=== PATIENT | male | born 1990 | race Asian ===

== ENCOUNTER 2019-01-24 03:17 | Emergency (ER) | payer OTHER ==
[~2019-01-24] VITALS: Ht 167.6 cm; Wt 68.0 kg
--- NOTE | 2019-01-24 03:22 | Emergency Room Report ---
History of Present Illness General Chief Complaint: Alcohol Intoxication Source: Patient, EMS Present Illness HPI Is a 28-year-old male with no past medical history. He was brought in by EMS with chief plane of alcohol intoxication. Family called 911 because he is been drinking all night. He is has nausea and vomiting. Complain of generalized body pain. Nothing made it better. Nothing made it worse. Denies any other complaint. No injury. Allergies: Coded Allergies: No Known Allergies (Unverified , 01/24/19) Patient History Past Medical History: see triage record, old chart reviewed Past Surgical History: none Pertinent Family History: none Social History: Reports: alcohol use Immunizations: other Reviewed Nursing Documentation: PMH: Agreed; PSxH: Agreed Nursing Documentation-PMH Past Medical History: No Stated History Review of Systems Eye: Denies: eye pain, blurred vision ENT: Denies: ear pain, nose congestion, throat swelling Respiratory: Denies: cough, shortness of breath Cardiovascular: Denies: chest pain, palpitations Gastrointestinal: Denies: abdominal pain, diarrhea, nausea, vomiting Musculoskeletal: Denies: back pain, joint pain Skin: Denies: rash Neurological: Denies: headache, numbness Endocrine: Denies: increased thirst, increased urine Hematologic/Lymphatic: Denies: easy bruising All Other Systems: negative except mentioned in HPI Physical Exam Vital Signs Date Time Temp Pulse Resp B/P (MAP) Pulse Ox O2 Delivery O2 Flow Rate FiO2 01/24/19 03:16 97.3 85 16 127/80 (96) 99 Room Air Vitals normal Sp02 EP Interpretation: reviewed, normal General Appearance: well appearing, no apparent distress, alert, other - Intoxicated Head: normocephalic, atraumatic Eyes: bilateral eye PERRL, bilateral eye EOMI ENT: hearing grossly normal, normal pharynx Neck: full range of motion, supple, no meningismus Respiratory: chest non-tender, lungs clear, normal breath sounds Cardiovascular #1: regular rate, rhythm, no murmur Gastrointestinal: normal bowel sounds, non tender, no mass, no organomegaly, no bruit, non-distended Musculoskeletal: back normal, normal range of motion, gait/station normal Neurologic: motor strength/tone normal Psychiatric: mood/affect normal Medical Decision Making Diagnostic Impression: Primary Impression: Acute alcoholic intoxication Qualified Codes: F10.920 - Alcohol use, unspecified with intoxication, uncomplicated Additional Impressions: Leukocytosis Qualified Codes: D72.829 - Elevated white blood cell count, unspecified Nausea & vomiting Qualified Codes: R11.2 - Nausea with vomiting, unspecified ER Course Patient presents with nausea vomiting secondary to alcohol intoxication. He does have a leukocytosis. I suspect this is a stress response from vomiting. He has no abdominal pain. No guarding or rebound on my exam. He felt better after IV fluid and Zofran. Will observe until clinical sobriety. Patient was very anxious. He keep saying that the nausea medication made him worse. He felt more nauseous and vomiting. I gave him a couple dose of Zofran here and also Reglan. I gave him Ativan. He said he wants to go home since he is not getting better here. He is not actively vomiting anymore. He does have a leukocytosis. His parents are here to take him home. Last Vital Signs Date Time Temp Pulse Resp B/P (MAP) Pulse Ox O2 Delivery O2 Flow Rate FiO2 01/24/19 03:16 97.3 85 16 127/80 (96) 99 Room Air Status: improved Disposition: HOME, SELF-CARE Condition: Stable Scripts No Active Prescriptions or Reported Meds Patient Instructions: Alcohol Intoxication, [id number] Additional Instructions: Abstain from alcohol. Follow-up with your doctor in 7 days. Return if worse. Abiel Hawley MD Jan 24, 2019 03:21
[2019-01-24] MEDS ORDERED: Pantoprazole Inj IVP ONE (03:30)
[2019-01-24 03:36] LABS: HEMATOCRIT 49.4 % (42.0-52.0); HEMOGLOBIN 17.6 G/DL (14.2-18.0); MEAN CORPUSCULAR VOLUME 88 FL (80-99); PLATELET COUNT 305 K/UL (150-450); RED BLOOD COUNT 5.58 M/UL (4.70-6.10); RED CELL DISTRIBUTION WIDTH 10.1 % (11.6-14.8); WHITE BLOOD COUNT 19.6 K/UL (4.8-10.8)
[2019-01-24 03:45] VITALS: BP 127/80
[2019-01-24 03:53] LABS: ANION GAP 20 mmol/L (5-15); BLOOD UREA NITROGEN 11 mg/dL (7-18); CALCIUM 9.4 MG/DL (8.5-10.1); CARBON DIOXIDE 20 MMOL/L (21-32); CHLORIDE 106 MMOL/L (98-107); CREATININE 0.9 MG/DL (0.55-1.30); POTASSIUM 3.6 MMOL/L (3.5-5.1); SODIUM 146 MMOL/L (136-145)
[2019-01-24 03:58] LABS: ALANINE AMINOTRANSFERASE 57 U/L (12-78); ALBUMIN 4.9 G/DL (3.4-5.0); ALBUMIN/GLOBULIN RATIO 1.4 (1.0-2.7); ALKALINE PHOSPHATASE 65 U/L (46-116); ASPARTATE AMINO TRANSFERASE 30 U/L (15-37); BILIRUBIN,TOTAL 0.5 MG/DL (0.2-1.0)
[2019-01-24] MEDS ORDERED: LORazepam Inj 2mg/ml 1ml IV ONE (04:45)
[2019-01-24] MEDS ORDERED: Metoclopramide 10mg/2ml Inj IVP ONE (04:45)
[2019-01-24 05:00] VITALS: BP 125/81
== END 2019-01-24 05:00 | disposition home or self-care (01) ==
LOC: EDBD 03:17 → EMR 03:29
DX: F10.129 Alcohol abuse with intoxication, unspecified (principal); D72.829 Elevated white blood cell count, unspecified; R11.2 Nausea with vomiting, unspecified
CPT/HCPCS: 80053; 85007; 85025; 96361; 96374; 96375; 96376; G0480; J2405; J2765; J7030; Z7502; 99284